=== PATIENT | female | born 1945 | race Hispanic/Latino ===

== ENCOUNTER 2019-03-09 23:47 | Inpatient (IN) | payer MEDICARE ==
--- NOTE | 2019-03-10 01:02 | Emergency Department Report ---
ED Chest Pain HPI - General Chief Complaint: Chest Pain Stated Complaint: CHEST PAIN Time Seen by Provider: 03/10/19 00:36 Source: EMS Mode of arrival: Stretcher Limitations: Altered Mental Status - History of Present Illness Initial Comments: 74-year-old female with no significant past history presents emergency Department with her son reports having a 4 day history of waxing and waning lower substernal chest pain she thinks might be related to some indigestion. His symptoms of weakness that he is well and occasional dizziness when she goes from lying her down. This typically occurs and she's been lying down prolonged period of time. No joint swelling, no cough, no fever, chills, sweats no hemoptysis no hematemesis nor hematochezia. MD Complaint: chest pain -: days(s) (4) Pain Location: substernal Pain Radiation: none Severity: mild, moderate Quality: dull Improves With: nothing Worsens With: nothing re: nausea Treatments Prior to Arrival: none - Related Data On Oral Contraceptives: No Home Medications Medication Instructions Recorded Confirmed Last Taken Naproxen [Naproxen TAB] 250 mg PO TID 07/10/15 07/10/15 06/10/15 traZODone [Desyrel] 50 mg PO QHS 07/10/15 07/10/15 07/05/15 Previous Rx's Medication Instructions Recorded Last Taken Type Promethazine [Phenergan TAB] 25 mg PO Q6HR PRN #20 tab 07/11/15 Unknown Rx traMADoL [Ultram] 50 mg PO Q6HR PRN #20 tablet 07/11/15 Unknown Rx Allergies Allergy/AdvReac Type Severity Reaction Status Date / Time No Known Allergies Allergy Unverified 07/10/15 22:05 Heart Score - HEART Score History: Moderately suspicious EKG: Non-specific Age: > 65 Risk factors: No known risk factors Troponin: < normal limit HEART Score: 4 ED Review of Systems ROS: Stated complaint: CHEST PAIN Other details as noted in HPI Comment: All other systems reviewed and negative ED Past Medical Hx - Past Medical History Hx Hypertension: Yes Additional medical history: polio - Surgical History Additional Surgical History: bilat. leg surgery, - Social History Smoking Status: Never Smoker Substance Use Type: None - Medications Home Medications: Home Medications Medication Instructions Recorded Confirmed Last Taken Type Naproxen [Naproxen TAB] 250 mg PO TID 07/10/15 07/10/15 06/10/15 History traZODone [Desyrel] 50 mg PO QHS 07/10/15 07/10/15 07/05/15 History Promethazine [Phenergan TAB] 25 mg PO Q6HR PRN #20 tab 07/11/15 Unknown Rx traMADoL [Ultram] 50 mg PO Q6HR PRN #20 tablet 07/11/15 Unknown Rx ED Physical Exam - General Limitations: Altered Mental Status General appearance: alert, in no apparent distress - Head Head exam: Present: atraumatic, normocephalic - Eye Eye exam: Present: normal appearance, PERRL, EOMI. Absent: scleral icterus, conjunctival injection Pupils: Present: normal accommodation - ENT ENT exam: Present: normal exam, normal orophraynx, mucous membranes moist, TM's normal bilaterally - Neck Neck exam: Present: normal inspection, full ROM. Absent: meningismus, thyromegaly - Respiratory Respiratory exam: Present: normal lung sounds bilaterally. Absent: respiratory distress, wheezes, rales, chest wall tenderness, accessory muscle use - Cardiovascular Cardiovascular Exam: Present: regular rate, normal rhythm. Absent: systolic murmur, diastolic murmur, rubs, gallop - GI/Abdominal GI/Abdominal exam: Present: soft, normal bowel sounds. Absent: distended, tenderness, hyperactive bowel sounds, hypoactive bowel sounds, organomegaly - Extremities Exam Extremities exam: Present: normal inspection, normal capillary refill - Back Exam Back exam: Present: normal inspection. Absent: CVA tenderness (R), CVA tenderness (L) - Neurological Exam Neurological exam: Present: alert, oriented X3 - Psychiatric Psychiatric exam: Present: normal affect, normal mood - Skin Skin exam: Present: warm, dry, intact, normal color. Absent: rash ED Course Vital Signs 03/10/19 03/10/19 03/10/19 00:16 00:26 00:30 Temperature 98.4 F Pulse Rate 72 70 Respiratory 18 13 Rate Blood Pressure 138/53 138/53 133/55 O2 Sat by Pulse 88 100 Oximetry 03/10/19 03/10/19 03/10/19 00:45 01:00 01:15 Temperature Pulse Rate 70 68 70 Respiratory 12 12 14 Rate Blood Pressure 140/56 140/54 142/53 O2 Sat by Pulse 94 96 Oximetry 03/10/19 03/10/19 03/10/19 01:34 01:45 02:00 Temperature Pulse Rate 67 68 66 Respiratory 11 L 14 15 Rate Blood Pressure 142/53 139/56 124/46 O2 Sat by Pulse 96 96 Oximetry 03/10/19 03/10/19 03/10/19 02:15 02:30 02:45 Temperature Pulse Rate 64 59 L 65 Respiratory 19 12 12 Rate Blood Pressure 135/55 125/45 132/48 O2 Sat by Pulse 95 95 94 Oximetry 03/10/19 03/10/19 03/10/19 03:00 03:15 03:30 Temperature Pulse Rate 59 L 64 60 Respiratory 13 14 22 Rate Blood Pressure 126/44 125/51 126/48 O2 Sat by Pulse 95 95 95 Oximetry 03/10/19 03/10/19 03:46 04:00 Temperature Pulse Rate 65 63 Respiratory 12 22 Rate Blood Pressure 125/48 128/52 O2 Sat by Pulse 95 94 Oximetry VERONIKA score - Veronika Score Age > 65: (1) Yes Aspirin use within the Past 7 Days: (0) No 3 or more CAD Risk Factors: (0) No 2 or more Angina events in past 24 hrs: (0) No Known CAD with more than 50% Stenosis: (0) No Elevated Cardiac Markers: (0) No (s) ST Deviation Greater than 0.5mm: (0) No VERONIKA Score: 1 ED Medical Decision Making - Lab Data Result diagrams: 03/10/19 01:05 03/10/19 01:05 - Medical Decision Making This patient presents with chest pain, with a history suggestive of cardiac chest pain. No evidence of volume overload or shock on exam. EKG without signs of active ischemia. EKG without evidence of STEMI. Low suspicion for acute PE , pneumothorax, thoracic aortic dissection, cardiac effusion / tamponade. Overall, ACS is being considered given higher risk features, , history & physical. HEART score: as per documentation. Patient will require admission for inpatient risk stratification and possible provocative testing. Plan: youth nutritional monitor, EKG, serial troponins, CXR, ASA, , pain control, reassess, Cardiology consult Critical care attestation.: If time is entered above; I have spent that time in minutes in the direct care of this critically ill patient, excluding procedure time. ED Disposition Clinical Impression: Chest pain Disposition: OP ADMIT IP TO THIS HOSP Is pt being admited?: Yes Does the pt Need Aspirin: No Condition: Stable Instructions: Chest Pain (ED)
[2019-03-10 01:46] LABS: Albumin 2.5 g/dL (3.9-5); BUN/Creatinine Ratio 30; Basophils % (Auto) 0.4 % (0.0-1.8); Blood Urea Nitrogen 15 mg/dL (7-17); Calcium 9.1 mg/dL (8.4-10.2); Eosinophils # (Auto) 0.2 K/mm3 (0.0-0.4); Hematocrit 22.3 % (30.3-42.9); Hemolysis Index 0; Lymphocytes # (Auto) 1.8 K/mm3 (1.2-5.4); Mean Corpuscular HGB Conc 31 % (30-34); Mean Corpuscular Volume 75 fl (79-97); Monocytes # (Auto) 1.5 K/mm3 (0.0-0.8); Monocytes % (Auto) 12.3 % (0.0-7.3); Platelet Count 751 K/mm3 (140-440); Red Blood Count 2.98 M/mm3 (3.65-5.03); Red Cell Distribution Width 17.7 % (13.2-15.2)
[2019-03-10 01:51] LABS: Alanine Aminotransferase < 5 units/L (7-56)
--- NOTE | 2019-03-10 01:56 | XRay Report ---
CHEST 2 VIEWS INDICATION / CLINICAL INFORMATION: Chest Pain. COMPARISON: None available. FINDINGS: SUPPORT DEVICES: None. HEART / MEDIASTINUM: No significant abnormality. LUNGS / PLEURA: Extensive airspace disease within the left upper lobe in the right lower lobe concern ing for multifocal pneumonia. Signer Name: Esteban Hawkins MD Signed: 03/10/2019 1:52 AM Workstation Name: [id number]
[2019-03-10 05:09] LABS: Bilirubin,Urine NEG (Negative); Blood,Urine NEG (Negative); Color,Urine Yellow (Yellow); Mucus,Urine FEW /HPF; Protein,Urine <15 mg/dL mg/dL (Negative)
[2019-03-10] MEDS ORDERED: traMADol 50 MG TAB PO PRN (06:37)
[2019-03-10] MEDS ORDERED: ACETAMINOPHEN 325 MG TAB PO PRN ×2 (06:38→06:45)
[2019-03-10] MEDS ORDERED: ONDANSETRON 4 MG/2 ML INJ IV PRN ×2 (06:38→06:45)
[2019-03-10] MEDS ORDERED: oxyCODONE /ACETAMINOPHEN 5-325MG TAB PO PRN (06:38)
[2019-03-10] MEDS ORDERED: METOCLOPRAMIDE 10 MG/2 ML INJ IV PRN ×2 (06:38→08:00)
[2019-03-10] MEDS ORDERED: HYDROmorphone 1 MG/1 ML INJ IV PRN (06:38)
--- NOTE | 2019-03-10 06:38 | Event Note ---
Date: 03/10/19 See history and physical in the reports Chest pain rule out AR Hypertension not taking her medications Cachexia and malnutrition
[2019-03-10] MEDS ORDERED: SODIUM CHLORIDE 0.9% 500 ML 500 ML IV ONE (06:49)
--- NOTE | 2019-03-10 07:01 | History and Physical Report ---
CHIEF COMPLAINT: Chest pain for 4 days. HISTORY OF PRESENT ILLNESS: A 74-year-old female with a history of depression and hypertension, comes in for chest pain of 4 days' duration. Apparently, Gen [facility], her PCP group stopped all her medications, including aspirin and antihypertensives. The patient has been having intermittent chest pain for last 4 days. Sharp in nature. Also, a 7-8 on a scale of 1-10. Able to move all 4 extremities. The patient is nervous about the chest pain. Otherwise, no recent travel. PAST MEDICAL HISTORY: Significant for hypertension and polio. PAST SURGICAL HISTORY: Bilateral leg surgery. SOCIAL HISTORY: Does not smoke. No drugs. FAMILY HISTORY: Hypertension. REVIEW OF SYSTEMS: Significant for left-sided chest pain for 4 days. No shortness of breath. Otherwise, review of systems negative. PHYSICAL EXAMINATION: GENERAL: Elderly female, cooperative during examination. VITAL SIGNS: Blood pressure is 126/44, temperature is 98, pulse is 59, respirations are 13, sats are 95%. HEENT: Unremarkable. Pupils equal and reactive. NECK: Supple, no lymphadenopathy, no thyromegaly. The patient is cachectic. LUNGS: Clear to auscultation and percussion. Good air entry. CARDIOVASCULAR: S1, S2 heard. No gallop, no murmur, no rub. Apical impulse in left fifth intercostal space and midclavicular line. ABDOMEN: Soft and benign. No hepatosplenomegaly. No guarding, no rigidity. Hernial orifices are normal. EXTREMITIES: Good pedal pulses. No pedal edema. CENTRAL NERVOUS SYSTEM: Alert and oriented x 4, nonfocal exam. LABORATORY DATA: White count is 12,200, H and H is 7.0 and 22.3, platelet count is 751,000. Sodium is 141, potassium is 3.5, BUN and creatinine 15 and 0.5, albumin is not available. Chest x-ray shows extensive airspace disease in the left upper lobe and right lower lobe, concerning for multifocal pneumonia. EKG shows left bundle branch block, heart rate of 79, sinus rhythm, atrial premature complexes. ASSESSMENT AND PLAN: 1. Bilateral pneumonia. The patient initiated on ceftriaxone and azithromycin and IV fluids. 2. Chest pain, which is probably secondary to pleurisy. We will not order a stress test. Troponins ordered. Stress test will not be ordered at this point. To be ordered by primary team if necessary. 3. Cachexia and malnutrition. Dietitian consult requested. 4. History of hypertension, blood pressure readings are normal now. We will add antihypertensives if necessary. 5. Deep venous thrombosis prophylaxis, SCDs. 6. Acute anemia. Transfuse 1-2 units. Anemia workup initiated. In the form of iron studies and folic acid and B12 levels. Again, dietitian consult will help with her nutrition. JOB# [id number] DOLORES/LUIS HILLMAN
[2019-03-10] MEDS: HEPARIN 5,000 UNIT/1 ML VIAL SUB-Q SCH ×2 (09:29→22:02)
[2019-03-10] MEDS: FAMOTIDINE 20 MG/2 ML INJ IV SCH ×2 (09:29→22:02)
[2019-03-10] MEDS ORDERED: cefTRIAXone/NS 2 GM/100 ML 2 GM/100 ML BAG IV SCH (10:00)
[2019-03-10] MEDS: AZITHROMYCIN 500 MG in SODIUM CHLORIDE 0.9% 250ML 250 ML IV SCH (10:57)
--- NOTE | 2019-03-10 13:29 | Consultation ---
History of Present Illness Consult date: 03/10/19 Consult reason: chest pain History of present illness: This is a 74-year old woman who was brought in with reports of chest pain thus this cardiac consultation. Patient is non-verbal. History is unobtainable. Initial labs reveals severe anemia with a hematocrit of 22. Cycled troponins were negative. An ECG is sinus rhythm with a left bundle branch block. Further evaluation with a chest x-ray reports concerns for multi-focal pneumonia. Medications and Allergies Allergies Allergy/AdvReac Type Severity Reaction Status Date / Time No Known Allergies Allergy Unverified 07/10/15 22:05 Home Medications Medication Instructions Recorded Confirmed Last Taken Type Naproxen [Naproxen TAB] 250 mg PO TID 07/10/15 07/10/15 06/10/15 History traZODone [Desyrel] 50 mg PO QHS 07/10/15 07/10/15 07/05/15 History Promethazine [Phenergan TAB] 25 mg PO Q6HR PRN #20 tab 07/11/15 Unknown Rx traMADoL [Ultram] 50 mg PO Q6HR PRN #20 tablet 07/11/15 Unknown Rx Active Meds: Active Medications Acetaminophen (Tylenol) 650 mg PO Q4H PRN PRN Reason: Pain MILD(1-3)/Fever >100.5/HUANG Famotidine (Pepcid) 10 mg IV BID [facility] Last Admin: 03/10/19 09:29 Dose: 10 mg Documented by: Heparin Sodium (Porcine) (Heparin) 5,000 unit SUB-Q Q12HR MARTHA Last Admin: 03/10/19 09:29 Dose: 5,000 unit Documented by: Hydromorphone HCl (Dilaudid) 0.25 mg IV Q3H PRN PRN Reason: Pain, Moderate (4-6) Sodium Chloride (Nacl 0.9% 1000 Ml) 1,000 mls @ 75 mls/hr IV DIRECT MARTHA Ceftriaxone Sodium (Rocephin/Ns 2 Gm/100 Ml) 2 gm in 100 mls @ 200 mls/hr IV Q24HR MARTHA; Protocol Last Admin: 03/10/19 09:28 Dose: 200 mls/hr Documented by: Azithromycin 500 mg/ Sodium (Chloride) 250 mls @ 250 mls/hr IV Q24HR MARTHA; Protocol Last Admin: 03/10/19 10:57 Dose: 250 mls/hr Documented by: Metoclopramide HCl (Reglan) 5 mg IV Q6H PRN PRN Reason: Nausea And Vomiting Ondansetron HCl (Zofran) 4 mg IV Q8H PRN PRN Reason: Nausea And Vomiting Oxycodone/Acetaminophen (Percocet 5/325) 1 tab PO Q6H PRN PRN Reason: Pain, Moderate (4-6) Sodium Chloride (Sodium Chloride Flush Syringe 10 Ml) 10 ml IV BID [facility] Last Admin: 03/10/19 09:37 Dose: 10 ml Documented by: Sodium Chloride (Sodium Chloride Flush Syringe 10 Ml) 10 ml IV PRN PRN PRN Reason: LINE FLUSH Tramadol HCl (Ultram) 50 mg PO Q12H PRN PRN Reason: Pain, Mild (1-3) Trazodone HCl (Desyrel) 50 mg PO QHS [facility] Physical Examination Vital Signs BP Pulse Ox 138/53 88 03/10/19 00:16 03/10/19 00:16 General appearance: no acute distress HEENT: Positive: PERRL Neck: Positive: trachea midline Cardiac: Positive: Reg Rate and Rhythm Lungs: Positive: Decreased Breath Sounds Results 03/10/19 01:05 03/10/19 01:05 Cardiac Enzymes 03/10/19 Range/Units 01:05 AST 8 (5-40) units/L CBC 03/10/19 Range/Units 01:05 WBC 12.2 H (4.5-11.0) K/mm3 RBC 2.98 L (3.65-5.03) M/mm3 Hgb 7.0 L (10.1-14.3) gm/dl Hct 22.3 L (30.3-42.9) % Plt Count 751 H (140-440) K/mm3 Lymph # 1.8 (1.2-5.4) K/mm3 [place] # 1.5 H (0.0-0.8) K/mm3 Eos # 0.2 (0.0-0.4) K/mm3 Baso # 0.0 (0.0-0.1) K/mm3 Comprehensive Metabolic Panel 03/10/19 Range/Units 01:05 Sodium 141 (137-145) mmol/L Potassium 3.5 L (3.6-5.0) mmol/L Chloride 99.9 (98-107) mmol/L Carbon Dioxide 31 H (22-30) mmol/L BUN 15 (7-17) mg/dL Creatinine 0.5 L (0.7-1.2) mg/dL Glucose 84 (65-100) mg/dL Calcium 9.1 (8.4-10.2) mg/dL AST 8 (5-40) units/L ALT < 5 L (7-56) units/L Alkaline Phosphatase 141 H (35-129) units/L Total Protein 5.7 L (6.3-8.2) g/dL Albumin 2.5 L (3.9-5) g/dL
[2019-03-10] MEDS: SODIUM CHLORIDE 0.9% 1000 ML 1,000 ML IV SCH (13:40)
--- NOTE | 2019-03-10 15:10 | Consultation ---
History of Present Illness - Reason for Consult Consult date: 03/10/19 Pneumonia, sepsis Requesting physician: CARMELLA DOWNS - History of Present Illness The patient is a 74-year-old female with history of hypertension who came into the emergency room last night with complaints of chest pain going on for about 4 days. Labs showed mild leukocytosis and chest x-ray showed findings concerning for pneumonia. Was also seen by cardiology, troponins were negative. I nfectious diseases was consulted due to concerns for pneumonia. Was empirically started on ceftriaxone and azithromycin. Awake, but confused, family members at bedside. Apparently patient is a heavy and chronic smoker. She is also somewhat confused, unable to provide a good history. History obtained by chart review and family members at bedside (son and his ). Review of Systems: limited due to confusion. Past History Past Medical History: hypertension Social history: smoking (extensive smoking history) Family history: hypertension Medications and Allergies Allergies Allergy/AdvReac Type Severity Reaction Status Date / Time No Known Allergies Allergy Unverified 07/10/15 22:05 Home Medications Medication Instructions Recorded Confirmed Last Taken Type Naproxen [Naproxen TAB] 250 mg PO TID 07/10/15 07/10/15 06/10/15 History traZODone [Desyrel] 50 mg PO QHS 07/10/15 07/10/15 07/05/15 History Promethazine [Phenergan TAB] 25 mg PO Q6HR PRN #20 tab 07/11/15 Unknown Rx traMADoL [Ultram] 50 mg PO Q6HR PRN #20 tablet 07/11/15 Unknown Rx Active Meds: Active Medications Acetaminophen (Tylenol) 650 mg PO Q4H PRN PRN Reason: Pain MILD(1-3)/Fever >100.5/HUANG Famotidine (Pepcid) 10 mg IV BID [facility] Last Admin: 03/10/19 09:29 Dose: 10 mg Documented by: Heparin Sodium (Porcine) (Heparin) 5,000 unit SUB-Q Q12HR [facility] Last Admin: 03/10/19 09:29 Dose: 5,000 unit Documented by: Hydromorphone HCl (Dilaudid) 0.25 mg IV Q3H PRN PRN Reason: Pain, Moderate (4-6) Sodium Chloride (Nacl 0.9% 1000 Ml) 1,000 mls @ 75 mls/hr IV DIRECT [facility] Last Admin: 03/10/19 13:40 Dose: 75 mls/hr Documented by: Ceftriaxone Sodium (Rocephin/Ns 2 Gm/100 Ml) 2 gm in 100 mls @ 200 mls/hr IV Q24HR [facility]; Protocol Last Admin: 03/10/19 09:28 Dose: 200 mls/hr Documented by: Azithromycin 500 mg/ Sodium (Chloride) 250 mls @ 250 mls/hr IV Q24HR [facility]; Protocol Last Admin: 03/10/19 10:57 Dose: 250 mls/hr Documented by: Metoclopramide HCl (Reglan) 5 mg IV Q6H PRN PRN Reason: Nausea And Vomiting Ondansetron HCl (Zofran) 4 mg IV Q8H PRN PRN Reason: Nausea And Vomiting Oxycodone/Acetaminophen (Percocet 5/325) 1 tab PO Q6H PRN PRN Reason: Pain, Moderate (4-6) Sodium Chloride (Sodium Chloride Flush Syringe 10 Ml) 10 ml IV BID [facility] Last Admin: 03/10/19 09:37 Dose: 10 ml Documented by: Sodium Chloride (Sodium Chloride Flush Syringe 10 Ml) 10 ml IV PRN PRN PRN Reason: LINE FLUSH Tramadol HCl (Ultram) 50 mg PO Q12H PRN PRN Reason: Pain, Mild (1-3) Trazodone HCl (Desyrel) 50 mg PO QHS [facility] Physical Examination - Physical Exam Narrative exam: Physical Exam: Constitutional: Alert, cooperative. No acute distress. cachexia Head, Ears, Nose: Normocephalic, atraumatic. External ears, nose normal Eyes: Conjunctivae/corneas clear. No icterus. No ptosis. Neck: Supple, no meningeal signs Oral: no thrush Cardiovascular: S1, S2 normal, 3/6 systolic murmur Respiratory: Good air entry, clear to auscultation bilaterally GI: Soft, non-tender; bowel sounds normal. No peritoneal signs Musculoskeletal: No pedal edema, no cyanosis. Skin: No rash or abscess Hem/Lymphatic: No palpable cervical or supraclavicular nodes. No lymphangitis Psych: no agitation Neurological: Awake, alert, not oriented - Constitutional Vitals: Vital Signs Temp Pulse Resp BP Pulse Ox 97.9 F 80 18 141/54 97 03/10/19 14:44 03/10/19 14:44 03/10/19 14:44 03/10/19 14:44 03/10/19 14:44 Temperature -Last 24 Hours Temperature 97.9 F Temperature 98 F Temperature 98.0 F Temperature 98.5 F Temperature 98.4 F Temperature 98.4 F Results - Labs CBC & Chem 7: 03/10/19 01:05 03/10/19 01:05 Labs: Abnormal lab results 03/10/19 03/10/19 03/10/19 Range/Units 01:05 01:05 08:12 WBC 12.2 H (4.5-11.0) K/mm3 RBC 2.98 L (3.65-5.03) M/mm3 Hgb 7.0 L (10.1-14.3) gm/dl Hct 22.3 L (30.3-42.9) % MCV 75 L (79-97) fl MCH 23 L (28-32) pg RDW 17.7 H (13.2-15.2) % Plt Count 751 H (140-440) K/mm3 [place] % (Auto) 12.3 H (0.0-7.3) % [place] # 1.5 H (0.0-0.8) K/mm3 Seg Neutrophils % 70.3 H (40.0-70.0) % Seg Neutrophils # 8.6 H (1.8-7.7) K/mm3 Potassium 3.5 L (3.6-5.0) mmol/L Carbon Dioxide 31 H (22-30) mmol/L Creatinine 0.5 L (0.7-1.2) mg/dL ALT < 5 L (7-56) units/L Alkaline Phosphatase 141 H (35-129) units/L Total Protein 5.7 L (6.3-8.2) g/dL Albumin 2.5 L (3.9-5) g/dL Lipase 9 L (13-60) units/L Crossmatch See Detail - Imaging and Cardiology Chest x-ray: report reviewed, image reviewed (x-ray shows bilateral pneumonia) Assessment and Plan Cultures: None A/P: 74-year-old female with history of hypertension admitted with: 1) Bilateral pneumonia: mild WBC elevation with chest pain and CXR findings concerning for multifocal pneumonia. 2) Anemia with thrombocytosis: monitor. Recs: No cultures ordered on admission, already on antibiotics, yield will be low now Continue Ceftriaxone and Azithromycin x total 5 days, switch to PO abx when improved Influenza rule out monitor CBC given anemia and thrombocytosis Molly Mcdaniel MD, FACP [facility] C: [phone] O: [phone] F: [phone]
[2019-03-10] MEDS: traZODone 50 MG TAB PO SCH (22:02)
[2019-03-11 04:45] LABS: Basophils # (Auto) 0.1 K/mm3 (0.0-0.1); Eosinophils # (Auto) 0.4 K/mm3 (0.0-0.4); Eosinophils % (Auto) 3.6 % (0.0-4.3); Hematocrit 26.6 % (30.3-42.9); Hemoglobin 8.7 gm/dl (10.1-14.3); Lymphocytes # (Auto) 2.2 K/mm3 (1.2-5.4); Lymphocytes % (Auto) 20.7 % (13.4-35.0); Mean Corpuscular HGB Conc 33 % (30-34); Mean Corpuscular Volume 77 fl (79-97); Monocytes # (Auto) 1.4 K/mm3 (0.0-0.8); Monocytes % (Auto) 12.8 % (0.0-7.3); Platelet Count 644 K/mm3 (140-440); Red Blood Count 3.45 M/mm3 (3.65-5.03); Red Cell Distribution Width 17.5 % (13.2-15.2)
[2019-03-11 05:05] LABS: Alanine Aminotransferase 5 units/L (7-56); Albumin 2.2 g/dL (3.9-5); BUN/Creatinine Ratio 24; Blood Urea Nitrogen 12 mg/dL (7-17); Calcium 8.6 mg/dL (8.4-10.2); Hemolysis Index 0
[2019-03-11] MEDS: cefTRIAXone/NS 1 GM/50 ML 1 GM/50 ML BAG IV SCH (09:27)
[2019-03-11] MEDS: FAMOTIDINE 10 MG TAB PO SCH ×2 (09:28→22:35)
[2019-03-11] MEDS: HEPARIN 5,000 UNIT/1 ML VIAL SUB-Q SCH ×2 (09:29→22:35)
[2019-03-11] MEDS: AZITHROMYCIN 500 MG in SODIUM CHLORIDE 0.9% 250ML 250 ML IV SCH (11:03)
--- NOTE | 2019-03-11 13:03 | Progress Note ---
Assessment and Plan Atypical chest pain Pneumonia Severe anemia Chronic left bundle-branch block Recommendations: An echocardiogram for left ventricular function assessment. Otherwise, conservative cardiac management. Subjective Date of service: 03/11/19 Interval history: Receiving physical therapy. Objective Vital Signs Temp Pulse Resp BP Pulse Ox 03/11/19 07:34 97.4 F L 64 18 122/43 96 03/11/19 02:16 74 92 03/11/19 01:39 98.6 F 20 108/51 03/10/19 19:52 73 03/10/19 19:42 98.2 F 68 20 144/51 95 03/10/19 19:29 20 03/10/19 16:40 98.3 F 73 16 154/49 95 03/10/19 16:14 98.6 F 85 18 106/51 98 03/10/19 15:44 98.3 F 69 18 147/53 97 03/10/19 15:14 98.1 F 78 18 133/44 97 03/10/19 14:44 97.9 F 80 18 141/54 97 03/10/19 14:29 98 F 83 18 137/52 96 03/10/19 13:15 98.0 F 80 20 146/66 87 - Physical Examination General: No Apparent Distress HEENT: Positive: PERRL Neck: Positive: trachea midline Cardiac: Positive: Reg Rate and Rhythm Lungs: Positive: Decreased Breath Sounds Neuro: Positive: Grossly Intact Extremities: Absent: edema - Labs and Meds Cardiac Enzymes 03/11/19 Range/Units 04:04 AST 8 (5-40) units/L CBC 03/11/19 Range/Units 04:04 WBC 10.7 (4.5-11.0) K/mm3 RBC 3.45 L (3.65-5.03) M/mm3 Hgb 8.7 L (10.1-14.3) gm/dl Hct 26.6 L (30.3-42.9) % Plt Count 644 H (140-440) K/mm3 Lymph # 2.2 (1.2-5.4) K/mm3 [place] # 1.4 H (0.0-0.8) K/mm3 Eos # 0.4 (0.0-0.4) K/mm3 Baso # 0.1 (0.0-0.1) K/mm3 Comprehensive Metabolic Panel 03/11/19 Range/Units 04:04 Sodium 140 (137-145) mmol/L Potassium 3.6 (3.6-5.0) mmol/L Chloride 101.9 (98-107) mmol/L Carbon Dioxide 29 (22-30) mmol/L BUN 12 (7-17) mg/dL Creatinine 0.5 L (0.7-1.2) mg/dL Glucose 85 (65-100) mg/dL Calcium 8.6 (8.4-10.2) mg/dL AST 8 (5-40) units/L ALT 5 L (7-56) units/L Alkaline Phosphatase 126 (35-129) units/L Total Protein 5.1 L (6.3-8.2) g/dL Albumin 2.2 L (3.9-5) g/dL
--- NOTE | 2019-03-11 14:16 | Progress Note ---
Assessment and Plan Assessment and plan: Patient is a 74 yo woman with a history of tobacco dependency, depression and hypertension who [facility] with AMS, cough, sob, chest pains. She was found to have bilateral pneumonia and low pulse ox of 88% on RA. * CXR 2 view: Extensive airspace disease within the left upper lobe, in the right lower lobe concerning for multifocal pneumonia Acute hypoxic respiratory failure: treat with O2 Bilateral pneumonia: treat with ABX Anemia appears acute on chronic s/p 1 units: monitor closely Severe malnutrition, poa bmi 16.8: consult [employer] Member Hypokalemia: replete and montior closely DVT ppx scd due to hgb 7.0 History Interval history: Patient was seen and examined. Follow-up on current diagnosis. No overnight events reported to me. Patient denies any chest pain, shortness breath, nausea/vomiting or severe headaches. Imaging, nursing note, chart, labs and old chart reviewed. Discussed with patient. Hospitalist Physical - Physical exam Narrative exam: Gen: cachetic, NAD, Awake, Alert, Orientated HEENT: NCAT, EOMI, PERRL, OP Clear Neck: supple, no adenopathy, no thyromegaly, no JVD CVS/Heart: RRR, normal S1S2, pulses present bilaterally Chest/Lungs: coarse bs bilateral, Symmetrical chest expansion, good air entry bilaterally GI/Abdomen: soft, NTND, good bowel sounds, no guarding or rebound /Bladder: no suprapubic tenderness, no CVA or paraspinal tenderness Extermity/Skin: no c/c/e, no obvious rash MSK: FROM x 4 Neuro: CN 2-12 grossly intact except [place], no new focal deficits Psych: calm - Constitutional Vitals: Temp Pulse Resp BP Pulse Ox 97.8 F 77 20 122/56 97 03/11/19 13:02 03/11/19 13:02 03/11/19 13:02 03/11/19 13:02 03/11/19 13:02 General appearance: Present: no acute distress Results - Labs CBC & Chem 7: 03/11/19 04:04 03/11/19 04:04 Labs: Laboratory Last Values WBC 10.7 K/mm3 (4.5-11.0) 03/11/19 04:04 RBC 3.45 M/mm3 (3.65-5.03) L 12/03/19 04:04 Hgb 8.7 gm/dl (10.1-14.3) L 03/11/19 04:04 Hct 26.6 % (30.3-42.9) L 03/11/19 04:04 MCV 77 fl (79-97) L 03/11/19 04:04 MCH 25 pg (28-32) L 03/11/19 04:04 MCHC 33 % (30-34) 03/11/19 04:04 RDW 17.5 % (13.2-15.2) H 03/11/19 04:04 Plt Count 644 K/mm3 (140-440) H 03/11/19 04:04 Lymph % (Auto) 20.7 % (13.4-35.0) 03/11/19 04:04 [place] % (Auto) 12.8 % (0.0-7.3) H 03/11/19 04:04 Eos % (Auto) 3.6 % (0.0-4.3) 03/11/19 04:04 Baso % (Auto) 1.0 % (0.0-1.8) 03/11/19 04:04 Lymph # 2.2 K/mm3 (1.2-5.4) 03/11/19 04:04 [place] # 1.4 K/mm3 (0.0-0.8) H 03/11/19 04:04 Eos # 0.4 K/mm3 (0.0-0.4) 03/11/19 04:04 Baso # 0.1 K/mm3 (0.0-0.1) 03/11/19 04:04 Seg Neutrophils % 61.9 % (40.0-70.0) 03/11/19 04:04 Seg Neutrophils # 6.6 K/mm3 (1.8-7.7) 03/11/19 04:04 Sodium 140 mmol/L (137-145) 03/11/19 04:04 Potassium 3.6 mmol/L (3.6-5.0) 03/11/19 04:04 Chloride 101.9 mmol/L (98-107) 03/11/19 04:04 Carbon Dioxide 29 mmol/L (22-30) 03/11/19 04:04 Anion Gap 13 mmol/L 03/11/19 04:04 BUN 12 mg/dL (7-17) 03/11/19 04:04 Creatinine 0.5 mg/dL (0.7-1.2) L 03/11/19 04:04 Estimated GFR > 60 ml/min 03/11/19 04:04 BUN/Creatinine Ratio 24 % 03/11/19 04:04 Glucose 85 mg/dL (65-100) 03/11/19 04:04 Hemoglobin A1c 4.8 % (4-6) 03/10/19 08:12 Calcium 8.6 mg/dL (8.4-10.2) 03/11/19 04:04 Total Bilirubin 0.20 mg/dL (0.1-1.2) 03/11/19 04:04 AST 8 units/L (5-40) 03/11/19 04:04 ALT 5 units/L (7-56) L 03/11/19 04:04 Alkaline Phosphatase 126 units/L (35-129) 03/11/19 04:04 Troponin T < 0.010 ng/mL (0.00-0.029) 03/10/19 12:50 Total Protein 5.1 g/dL (6.3-8.2) L 03/11/19 04:04 Albumin 2.2 g/dL (3.9-5) L 03/11/19 04:04 Albumin/Globulin Ratio 0.8 % 03/11/19 04:04 Lipase 9 units/L (13-60) L 03/10/19 01:05 Urine Color Yellow (Yellow) 03/10/19 04:50 Urine Turbidity Clear (Clear) 03/10/19 04:50 Urine pH 6.0 (5.0-7.0) 03/10/19 04:50 Ur Specific [place] 1.019 (1.003-1.030) 03/10/19 04:50 Urine Protein <15 mg/dl mg/dL (Negative) 03/10/19 04:50 Urine Glucose (UA) Neg mg/dL (Negative) 03/10/19 04:50 Urine Ketones Neg mg/dL (Negative) 03/10/19 04:50 Urine Blood Neg (Negative) 03/10/19 04:50 Urine Nitrite Neg (Negative) 03/10/19 04:50 Urine Bilirubin Neg (Negative) 03/10/19 04:50 Urine Urobilinogen 4.0 mg/dL (<2.0) 03/10/19 04:50 Ur Leukocyte Esterase Neg (Negative) 03/10/19 04:50 Urine WBC (Auto) 1.0 /HPF (0.0-6.0) 03/10/19 04:50 Urine RBC (Auto) 15.0 /HPF (0.0-6.0) 03/10/19 04:50 U Epithel Cells (Auto) < 1.0 /HPF (0-13.0) 03/10/19 04:50 Urine Mucus Few /HPF 03/10/19 04:50 Influenza A (Rapid) Negative (Negative) 03/10/19 15:28 Influenza B (Rapid) Negative (Negative) 03/10/19 15:28 Blood Type O POSITIVE 03/10/19 08:12 Antibody Screen Negative 03/10/19 08:12 Crossmatch See Detail 03/10/19 08:12 Active Medications - Current Medications Current Medications: Generic Name Dose Route Start Last Admin Trade Name Freq PRN Reason Stop Dose Admin Acetaminophen 650 mg 03/10/19 06:45 Tylenol PO Q4H PRN Pain MILD(1-3)/Fever >100.5/HUANG Famotidine 10 mg 03/11/19 10:00 03/11/19 09:28 Pepcid PO 10 mg BID MARTHA Administration Heparin Sodium (Porcine) 5,000 unit 03/10/19 10:00 03/11/19 09:29 Heparin SUB-Q 5,000 unit Q12HR MARTHA Administration Hydromorphone HCl 0.25 mg 03/10/19 06:38 Dilaudid IV Q3H PRN Pain, Moderate (4-6) Sodium Chloride 1,000 mls @ 75 mls/hr 03/10/19 07:00 03/10/19 13:40 Nacl 0.9% 1000 Ml IV 75 mls/hr DIRECT MARTHA Administration Azithromycin 500 mg/ Sodium 250 mls @ 250 mls/hr 03/10/19 10:00 03/11/19 11:03 Chloride IV 03/14/19 10:59 250 mls/hr Q24HR MARTHA Administration Protocol Ceftriaxone Sodium 1 gm in 50 mls @ 100 mls/hr 03/11/19 10:00 03/11/19 09:27 Rocephin/Ns 1 Gm/50 Ml IV 03/14/19 10:29 100 mls/hr Q24H MARTHA Administration Protocol Metoclopramide HCl 5 mg 03/10/19 08:00 Reglan IV Q6H PRN Nausea And Vomiting Ondansetron HCl 4 mg 03/10/19 06:38 Zofran IV Q8H PRN Nausea And Vomiting Oxycodone/Acetaminophen 1 tab 03/10/19 06:38 Percocet 5/325 PO Q6H PRN Pain, Moderate (4-6) Sodium Chloride 10 ml 03/10/19 10:00 03/11/19 09:29 Sodium Chloride Flush Syringe 10 Ml IV 10 ml BID MARTHA Administration Sodium Chloride 10 ml 03/10/19 06:38 Sodium Chloride Flush Syringe 10 Ml IV PRN PRN LINE FLUSH Tramadol HCl 50 mg 03/10/19 06:37 Ultram PO Q12H PRN Pain, Mild (1-3) Trazodone HCl 50 mg 03/10/19 22:00 03/10/19 22:02 Desyrel PO 50 mg QHS MARTHA Administration Nutrition/Malnutrition Assess - Dietary Evaluation Nutrition/Malnutrition Findings: Nutrition Notes Start: 03/11/19 12:27 Freq: Status: Active Protocol: Document 03/11/19 12:27 KS (Rec: 03/11/19 12:42 KS [id number]) Co-Sign 03/11/19 12:27 LP Nutrition Notes Need for Assessment generated from: Low BMI Initial or Follow up Assessment Current Diagnosis Sepsis,Hypertension Other Pertinent Diagnosis Pneumonia, Anemia Current Diet Regular Diet Labs/Tests CR 0.5 Pertinent Medications Heparin Height 4 ft 7 in Weight 32.8 kg Usual Body Weight 36.4 kg [place] Body Weight (kg) 34.09 BMI 16.8 Intake Prior to Admission Fair Weight change and time frame 12.5% wt loss in 3 mos Weight Status Underweight Subjective/Other Information Consult for low BMI. Pt reports UBW of 80lbs and wt loss of 10lbs in 3 mos. Wt in chart consistent with stated wt loss. Pt reports decreased appetite, only eating bites of food x4 days [employer]. Pt ate bites of breakfast tray this morning which family member at bedside says is "more than at home." No N/V/D. Mild muscle wasting noted. Pt requests Ensure Enlive BID. Burn Absent Trauma Absent Minimum of two criteria Yes Energy Intake (non-severe) <75% Estimated Energy Requirement >7 days Interpretation of Weight Loss (severe) >7.5% in 3 months Muscle Mass Mild Depletion (non-severe) #1 Nutrition Diagnosis Malnutrition Etiology decreased appetite, unintended wt loss As Evidenced by Signs and Symptoms pt eating bites of food, wt loss of 8.8% in 3 mos, muscle wasting Is patient on ventilator? No Is Patient Ambulatory and/or Out of Bed Yes REE-([facility]-ambulatory/OOB) [ 871.169 [id number]] Kcal/Kg value to use for calculation 37 Approximate Energy Requirements Using 1214 kcal/Kg Calculation Used for Recommendations Kcal/kg Additional Notes PRO: 39-49g/kg/day (1.2-1.5g/ kg/day) Fluid: 1mL/kcal Nutrition Intervention Change Diet Order: Continue current diet Add Supplement/Snack (indicate name/kcal Ensure Enlive BID /protein ) Provides kCal: 700 Provides Protein (gm) 40 Goal #1 Meet at least 75% of needs via PO and ONS intakes Anticipated Discharge Needs: Regular Diet Follow-Up By: 03/13/19 Additional Comments Follow for PO and ONS intakes
--- NOTE | 2019-03-11 14:52 | Progress Note ---
Assessment and Plan Cultures: None A/P: 74-year-old female with history of hypertension admitted with: 1) Bilateral pneumonia: mild WBC elevation with chest pain and CXR findings concerning for multifocal pneumonia. Rapid influenza negative. 2) Anemia with thrombocytosis: monitor. Improving. 3) Extensive tobacco use Recs: Continue Ceftriaxone and Azithromycin while inpatient, upon d/c, can switch to PO Ceftin 500 mg BID + Azithromycin 500 mg daily ending 03/14/2019 given her extensive smoking history, she should get follow up imaging with her PCP in 3-4 weeks Molly Mcdaniel MD, FACP [facility] ([facility] C: [phone] O: [phone] F: [phone] Subjective Date of service: 03/11/19 Interval history: No fever. Breathing is better. Denies any complaints. Objective - Exam Narrative Exam: Physical Exam: Constitutional: Alert, cooperative. No acute distress. Cachexia Head, Ears, Nose: Normocephalic, atraumatic. External ears, nose normal Eyes: Conjunctivae/corneas clear. No icterus. No ptosis. Neck: Supple, no meningeal signs Cardiovascular: S1, S2 normal, 3/6 systolic murmur Respiratory: Good air entry, clear to auscultation bilaterally GI: Soft, non-tender; bowel sounds normal. No peritoneal signs Musculoskeletal: No pedal edema, no cyanosis. Skin: No rash or abscess Hem/Lymphatic: No palpable cervical or supraclavicular nodes. No lymphangitis Psych: calm, good mood, affect normal Neurological: Awake, alert, oriented - Constitutional Vitals: Vital Signs Temp Pulse Resp BP Pulse Ox 97.8 F 77 20 122/56 97 03/11/19 13:02 03/11/19 13:02 03/11/19 13:02 03/11/19 13:02 03/11/19 13:02 Temperature -Last 24 Hours Temperature 97.8 F Temperature 97.4 F Temperature 98.6 F Temperature 98.2 F Temperature 98.3 F Temperature 98.3 F Temperature 98.6 F Temperature 98.3 F Temperature 98.1 F - Labs CBC & Chem 7: 03/11/19 04:04 03/11/19 04:04 Labs: Abnormal lab results 03/10/19 03/11/19 03/11/19 Range/Units 08:12 04:04 04:04 RBC 3.45 L (3.65-5.03) M/mm3 Hgb 8.7 L (10.1-14.3) gm/dl Hct 26.6 L (30.3-42.9) % MCV 77 L (79-97) fl MCH 25 L (28-32) pg RDW 17.5 H (13.2-15.2) % Plt Count 644 H (140-440) K/mm3 [place] % (Auto) 12.8 H (0.0-7.3) % [place] # 1.4 H (0.0-0.8) K/mm3 Creatinine 0.5 L (0.7-1.2) mg/dL ALT 5 L (7-56) units/L Total Protein 5.1 L (6.3-8.2) g/dL Albumin 2.2 L (3.9-5) g/dL Crossmatch See Detail
[2019-03-11] MEDS: traZODone 50 MG TAB PO SCH (22:35)
[2019-03-12 06:02] LABS: Hematocrit 24.9 % (30.3-42.9); Mean Corpuscular HGB Conc 32 % (30-34); Mean Corpuscular Volume 78 fl (79-97); Platelet Count 586 K/mm3 (140-440); Red Blood Count 3.22 M/mm3 (3.65-5.03); Red Cell Distribution Width 17.6 % (13.2-15.2)
[2019-03-12 06:27] LABS: BUN/Creatinine Ratio 22; Blood Urea Nitrogen 11 mg/dL (7-17); Calcium 8.5 mg/dL (8.4-10.2); Hemolysis Index 4
[2019-03-12] MEDS: FAMOTIDINE 10 MG TAB PO SCH ×2 (10:09→21:31)
[2019-03-12] MEDS: cefTRIAXone/NS 1 GM/50 ML 1 GM/50 ML BAG IV SCH (10:09)
[2019-03-12] MEDS: AZITHROMYCIN 500 MG in SODIUM CHLORIDE 0.9% 250ML 250 ML IV SCH (10:10)
[2019-03-12] MEDS: SODIUM CHLORIDE 0.9% 1000 ML 1,000 ML IV SCH (10:10)
[2019-03-12] MEDS: HEPARIN 5,000 UNIT/1 ML VIAL SUB-Q SCH ×2 (10:10→21:33)
--- NOTE | 2019-03-12 11:01 | Progress Note ---
<SHANNAN MCCABE - Last Filed: 03/12/19 10:59> Assessment and Plan Atypical chest pain Pneumonia Severe anemia Chronic left bundle-branch block Recommendations: An echocardiogram for left ventricular function assessment. Otherwise, conservative cardiac management. Subjective Date of service: 03/12/19 Interval history: Patient is resting in bed comfortably. Objective Vital Signs Temp Pulse Pulse Resp BP Pulse Ox 03/12/19 07:54 72 03/12/19 07:08 98.1 F 64 18 137/56 92 03/12/19 02:08 97.3 F L 70 20 158/63 92 03/11/19 22:00 71 72 18 95 03/11/19 19:21 97.2 F L 71 18 131/51 95 03/11/19 13:02 97.8 F 77 20 122/56 97 - Physical Examination General: No Apparent Distress HEENT: Positive: PERRL Neck: Positive: trachea midline Cardiac: Positive: Reg Rate and Rhythm Lungs: Positive: Decreased Breath Sounds Neuro: Positive: Grossly Intact Extremities: Absent: edema - Labs and Meds CBC 03/12/19 Range/Units 04:58 WBC 8.9 (4.5-11.0) K/mm3 RBC 3.22 L (3.65-5.03) M/mm3 Hgb 8.0 L (10.1-14.3) gm/dl Hct 24.9 L (30.3-42.9) % Plt Count 586 H (140-440) K/mm3 Comprehensive Metabolic Panel 03/12/19 Range/Units 04:58 Sodium 141 (137-145) mmol/L Potassium 3.4 L (3.6-5.0) mmol/L Chloride 104.9 (98-107) mmol/L Carbon Dioxide 23 (22-30) mmol/L BUN 11 (7-17) mg/dL Creatinine 0.5 L (0.7-1.2) mg/dL Glucose 77 (65-100) mg/dL Calcium 8.5 (8.4-10.2) mg/dL <NAN MCKEON - Last Filed: 03/12/19 15:26> Assessment and Plan I seen and evaluated the patient and agree with the assessment and plan. The patient presented with atypical chest pain, pneumonia, severe anemia, and a known left bundle-branch block. Echocardiogram for left ventricular evaluation is pending. At this time recommend continue conservative medical therapy. Objective Vital Signs Temp Pulse Pulse Resp BP Pulse Ox 03/12/19 13:05 97.6 F 69 18 147/60 95 03/12/19 10:00 64 72 03/12/19 07:08 98.1 F 64 18 137/56 92 03/12/19 02:08 97.3 F L 70 20 158/63 92 03/11/19 22:00 71 72 18 95 03/11/19 19:21 97.2 F L 71 18 131/51 95 - Labs and Meds CBC 03/12/19 Range/Units 04:58 WBC 8.9 (4.5-11.0) K/mm3 RBC 3.22 L (3.65-5.03) M/mm3 Hgb 8.0 L (10.1-14.3) gm/dl Hct 24.9 L (30.3-42.9) % Plt Count 586 H (140-440) K/mm3 Comprehensive Metabolic Panel 03/12/19 Range/Units 04:58 Sodium 141 (137-145) mmol/L Potassium 3.4 L (3.6-5.0) mmol/L Chloride 104.9 (98-107) mmol/L Carbon Dioxide 23 (22-30) mmol/L BUN 11 (7-17) mg/dL Creatinine 0.5 L (0.7-1.2) mg/dL Glucose 77 (65-100) mg/dL Calcium 8.5 (8.4-10.2) mg/dL
--- NOTE | 2019-03-12 11:50 | Progress Note ---
Assessment and Plan Cultures: None A/P: 74-year-old female with history of hypertension admitted with: 1) Bilateral pneumonia: mild WBC elevation with chest pain and CXR findings concerning for multifocal pneumonia. Rapid influenza negative. 2) Anemia with thrombocytosis: monitor. Improving. 3) Extensive tobacco use Recs: Continue Ceftriaxone and Azithromycin while inpatient, when discharged, can switch to PO Ceftin 500 mg BID + Azithromycin 500 mg daily ending 03/14/2019 given her extensive smoking history, she should get follow up imaging with her PCP in 3-4 weeks Molly Mcdaniel MD, FACP [facility] C: [phone] O: [phone] F: [phone] Subjective Date of service: 03/12/19 Interval history: Has no complaints. Remained afebrile. Breathing is stable. Getting PT/OT Objective - Exam Narrative Exam: Physical Exam: Constitutional: Alert, cooperative. No acute distress. Cachexia Head, Ears, Nose: Normocephalic, atraumatic. External ears, nose normal Eyes: Conjunctivae/corneas clear. No icterus. No ptosis. Neck: Supple, no meningeal signs Cardiovascular: S1, S2 normal, 3/6 systolic murmur Respiratory: AE decreased bilaterally but clear GI: Soft, non-tender; bowel sounds normal. No peritoneal signs Musculoskeletal: No pedal edema, no cyanosis. Skin: No rash or abscess Hem/Lymphatic: No palpable cervical or supraclavicular nodes. No lymphangitis Psych: calm, good mood, affect normal Neurological: Awake, alert. - Constitutional Vitals: Vital Signs Temp Pulse Resp BP Pulse Ox 98.1 F 72 18 137/56 92 03/12/19 07:08 03/12/19 10:00 03/12/19 07:08 03/12/19 07:08 03/12/19 07:08 Temperature -Last 24 Hours Temperature 98.1 F Temperature 97.3 F Temperature 97.2 F Temperature 97.8 F - Labs CBC & Chem 7: 03/12/19 04:58 03/12/19 04:58 Labs: Abnormal lab results 03/12/19 03/12/19 Range/Units 04:58 04:58 RBC 3.22 L (3.65-5.03) M/mm3 Hgb 8.0 L (10.1-14.3) gm/dl Hct 24.9 L (30.3-42.9) % MCV 78 L (79-97) fl MCH 25 L (28-32) pg RDW 17.6 H (13.2-15.2) % Plt Count 586 H (140-440) K/mm3 Potassium 3.4 L (3.6-5.0) mmol/L Creatinine 0.5 L (0.7-1.2) mg/dL
[2019-03-12] MEDS ORDERED: POTASSIUM CHLORIDE 20 MEQ PACKET PO ONE (17:03)
--- NOTE | 2019-03-12 17:05 | Progress Note ---
Assessment and Plan Assessment and plan: Patient is a 74 yo woman with a history of tobacco dependency, depression and hypertension who presented to [facility] ED with AMS, cough, sob, chest pains. She was found to have bilateral pneumonia and low pulse ox of 88% on RA. * CXR 2 view: Extensive airspace disease within the left upper lobe, in the right lower lobe concerning for multifocal pneumonia Acute hypoxic respiratory failure: treat with O2 Bilateral Aspiration pneumonia, poa: treat with ABX Anemia appears acute on chronic s/p 1 units: monitor closely Severe malnutrition, poa bmi 16.8: consulted Commercial Diver Hypokalemia: replete and monitor closely DVT ppx scd due to hgb 7.0/anemia Disposition: continue inpatient care, still sob with minimal activity, hopefully can discharge tomorrow. History Interval history: Patient was seen and examined. Follow-up on current diagnosis. No overnight events reported to me. Patient denies any chest pain, shortness breath, nausea/vomiting or severe headaches. Imaging, nursing note, chart, labs and old chart reviewed. Discussed with patient. Hospitalist Physical - Physical exam Narrative exam: Gen: cachetic, NAD, Awake, Alert, Orientated HEENT: NCAT, EOMI, PERRL, OP Clear Neck: supple, no adenopathy, no thyromegaly, no JVD CVS/Heart: RRR, normal S1S2, pulses present bilaterally Chest/Lungs: coarse bs bilateral, Symmetrical chest expansion, good air entry bilaterally GI/Abdomen: soft, NTND, good bowel sounds, no guarding or rebound /Bladder: no suprapubic tenderness, no CVA or paraspinal tenderness Extermity/Skin: no c/c/e, no obvious rash MSK: FROM x 4 Neuro: CN 2-12 grossly intact except [place], no new focal deficits Psych: calm - Constitutional Vitals: Temp Pulse Resp BP Pulse Ox 97.6 F 69 18 147/60 95 03/12/19 13:05 03/12/19 13:05 03/12/19 13:05 03/12/19 13:05 03/12/19 13:05 General appearance: Present: no acute distress Results - Labs CBC & Chem 7: 03/12/19 04:58 03/12/19 04:58 Labs: Laboratory Last Values WBC 8.9 K/mm3 (4.5-11.0) 12/04/19 04:58 RBC 3.22 M/mm3 (3.65-5.03) L 03/12/19 04:58 Hgb 8.0 gm/dl (10.1-14.3) L 03/12/19 04:58 Hct 24.9 % (30.3-42.9) L 03/12/19 04:58 MCV 78 fl (79-97) L 03/12/19 04:58 MCH 25 pg (28-32) L 03/12/19 04:58 MCHC 32 % (30-34) 03/12/19 04:58 RDW 17.6 % (13.2-15.2) H 03/12/19 04:58 Plt Count 586 K/mm3 (140-440) H 03/12/19 04:58 Lymph % (Auto) 20.7 % (13.4-35.0) 03/11/19 04:04 [place] % (Auto) 12.8 % (0.0-7.3) H 03/11/19 04:04 Eos % (Auto) 3.6 % (0.0-4.3) 03/11/19 04:04 Baso % (Auto) 1.0 % (0.0-1.8) 03/11/19 04:04 Lymph # 2.2 K/mm3 (1.2-5.4) 03/11/19 04:04 [place] # 1.4 K/mm3 (0.0-0.8) H 03/11/19 04:04 Eos # 0.4 K/mm3 (0.0-0.4) 03/11/19 04:04 Baso # 0.1 K/mm3 (0.0-0.1) 03/11/19 04:04 Seg Neutrophils % 61.9 % (40.0-70.0) 03/11/19 04:04 Seg Neutrophils # 6.6 K/mm3 (1.8-7.7) 03/11/19 04:04 Sodium 141 mmol/L (137-145) 03/12/19 04:58 Potassium 3.4 mmol/L (3.6-5.0) L 03/12/19 04:58 Chloride 104.9 mmol/L (98-107) 03/12/19 04:58 Carbon Dioxide 23 mmol/L (22-30) 03/12/19 04:58 Anion Gap 17 mmol/L 03/12/19 04:58 BUN 11 mg/dL (7-17) 03/12/19 04:58 Creatinine 0.5 mg/dL (0.7-1.2) L 03/12/19 04:58 Estimated GFR > 60 ml/min 03/12/19 04:58 BUN/Creatinine Ratio 22 % 03/12/19 04:58 Glucose 77 mg/dL (65-100) 03/12/19 04:58 Hemoglobin A1c 4.8 % (4-6) 03/10/19 08:12 Calcium 8.5 mg/dL (8.4-10.2) 03/12/19 04:58 Total Bilirubin 0.20 mg/dL (0.1-1.2) 03/11/19 04:04 AST 8 units/L (5-40) 03/11/19 04:04 ALT 5 units/L (7-56) L 03/11/19 04:04 Alkaline Phosphatase 126 units/L (35-129) 03/11/19 04:04 Troponin T < 0.010 ng/mL (0.00-0.029) 03/10/19 12:50 Total Protein 5.1 g/dL (6.3-8.2) L 03/11/19 04:04 Albumin 2.2 g/dL (3.9-5) L 03/11/19 04:04 Albumin/Globulin Ratio 0.8 % 03/11/19 04:04 Lipase 9 units/L (13-60) L 03/10/19 01:05 Urine Color Yellow (Yellow) 03/10/19 04:50 Urine Turbidity Clear (Clear) 03/10/19 04:50 Urine pH 6.0 (5.0-7.0) 03/10/19 04:50 Ur Specific [place] 1.019 (1.003-1.030) 03/10/19 04:50 Urine Protein <15 mg/dl mg/dL (Negative) 03/10/19 04:50 Urine Glucose (UA) Neg mg/dL (Negative) 03/10/19 04:50 Urine Ketones Neg mg/dL (Negative) 03/10/19 04:50 Urine Blood Neg (Negative) 03/10/19 04:50 Urine Nitrite Neg (Negative) 03/10/19 04:50 Urine Bilirubin Neg (Negative) 03/10/19 04:50 Urine Urobilinogen 4.0 mg/dL (<2.0) 03/10/19 04:50 Ur Leukocyte Esterase Neg (Negative) 03/10/19 04:50 Urine WBC (Auto) 1.0 /HPF (0.0-6.0) 03/10/19 04:50 Urine RBC (Auto) 15.0 /HPF (0.0-6.0) 03/10/19 04:50 U Epithel Cells (Auto) < 1.0 /HPF (0-13.0) 03/10/19 04:50 Urine Mucus Few /HPF 03/10/19 04:50 Influenza A (Rapid) Negative (Negative) 03/10/19 15:28 Influenza B (Rapid) Negative (Negative) 03/10/19 15:28 Blood Type O POSITIVE 03/10/19 08:12 Antibody Screen Negative 03/10/19 08:12 Crossmatch See Detail 03/10/19 08:12 Active Medications - Current Medications Current Medications: Generic Name Dose Route Start Last Admin Trade Name Freq PRN Reason Stop Dose Admin Acetaminophen 650 mg 03/10/19 06:45 Tylenol PO Q4H PRN Pain MILD(1-3)/Fever >100.5/HUANG Famotidine 10 mg 03/11/19 10:00 03/12/19 10:09 Pepcid PO 10 mg BID MARTHA Administration Heparin Sodium (Porcine) 5,000 unit 03/10/19 10:00 03/12/19 10:10 Heparin SUB-Q 5,000 unit Q12HR MARTHA Administration Hydromorphone HCl 0.25 mg 03/10/19 06:38 Dilaudid IV Q3H PRN Pain, Moderate (4-6) Sodium Chloride 1,000 mls @ 75 mls/hr 03/10/19 07:00 03/12/19 10:10 Nacl 0.9% 1000 Ml IV 75 mls/hr DIRECT MARTHA Administration Azithromycin 500 mg/ Sodium 250 mls @ 250 mls/hr 03/10/19 10:00 03/12/19 10:10 Chloride IV 03/14/19 10:59 250 mls/hr Q24HR MARTHA Administration Protocol Ceftriaxone Sodium 1 gm in 50 mls @ 100 mls/hr 03/11/19 10:00 03/12/19 10:09 Rocephin/Ns 1 Gm/50 Ml IV 03/14/19 10:29 100 mls/hr Q24H MARTHA Administration Protocol Metoclopramide HCl 5 mg 03/10/19 08:00 Reglan IV Q6H PRN Nausea And Vomiting Ondansetron HCl 4 mg 03/10/19 06:38 Zofran IV Q8H PRN Nausea And Vomiting Oxycodone/Acetaminophen 1 tab 03/10/19 06:38 Percocet 5/325 PO Q6H PRN Pain, Moderate (4-6) Sodium Chloride 10 ml 03/10/19 10:00 03/12/19 10:10 Sodium Chloride Flush Syringe 10 Ml IV 10 ml BID MARTHA Administration Sodium Chloride 10 ml 03/10/19 06:38 Sodium Chloride Flush Syringe 10 Ml IV PRN PRN LINE FLUSH Tramadol HCl 50 mg 03/10/19 06:37 Ultram PO Q12H PRN Pain, Mild (1-3) Trazodone HCl 50 mg 03/10/19 22:00 03/11/19 22:35 Desyrel PO 50 mg QHS MARTHA Administration Nutrition/Malnutrition Assess - Dietary Evaluation Nutrition/Malnutrition Findings: Nutrition Notes Start: 03/11/19 12:27 Freq: Status: Active Protocol: Document 03/11/19 12:27 KS (Rec: 03/11/19 12:42 KS [id number]) Co-Sign 03/11/19 12:27 LP Nutrition Notes Need for Assessment generated from: Low BMI Initial or Follow up Assessment Current Diagnosis Sepsis,Hypertension Other Pertinent Diagnosis Pneumonia, Anemia Current Diet Regular Diet Labs/Tests CR 0.5 Pertinent Medications Heparin Height 4 ft 7 in Weight 32.8 kg Usual Body Weight 36.4 kg [place] Body Weight (kg) 34.09 BMI 16.8 Intake Prior to Admission Fair Weight change and time frame 12.5% wt loss in 3 mos Weight Status Underweight Subjective/Other Information Consult for low BMI. Pt reports UBW of 80lbs and wt loss of 10lbs in 3 mos. Wt in chart consistent with stated wt loss. Pt reports decreased appetite, only eating bites of food x4 days ADMISSIONS ASSISTANT. Pt ate bites of breakfast tray this morning which family member at bedside says is "more than at home." No N/V/D. Mild muscle wasting noted. Pt requests Ensure Enlive BID. Burn Absent Trauma Absent Minimum of two criteria Yes Energy Intake (non-severe) <75% Estimated Energy Requirement >7 days Interpretation of Weight Loss (severe) >7.5% in 3 months Muscle Mass Mild Depletion (non-severe) #1 Nutrition Diagnosis Malnutrition Etiology decreased appetite, unintended wt loss As Evidenced by Signs and Symptoms pt eating bites of food, wt loss of 8.8% in 3 mos, muscle wasting Is patient on ventilator? No Is Patient Ambulatory and/or Out of Bed Yes REE-([facility]-ambulatory/OOB) [ 871.169 NUTR.[id number]] Kcal/Kg value to use for calculation 37 Approximate Energy Requirements Using 1214 kcal/Kg Calculation Used for Recommendations Kcal/kg Additional Notes PRO: 39-49g/kg/day (1.2-1.5g/ kg/day) Fluid: 1mL/kcal Nutrition Intervention Change Diet Order: Continue current diet Add Supplement/Snack (indicate name/kcal Ensure Enlive BID /protein ) Provides kCal: 700 Provides Protein (gm) 40 Goal #1 Meet at least 75% of needs via PO and ONS intakes Anticipated Discharge Needs: Regular Diet Follow-Up By: 03/13/19 Additional Comments Follow for PO and ONS intakes
[2019-03-12] MEDS: traZODone 50 MG TAB PO SCH (21:32)
[2019-03-13] MEDS: SODIUM CHLORIDE 0.9% 1000 ML 1,000 ML IV SCH (02:37)
[2019-03-13] MEDS: FAMOTIDINE 10 MG TAB PO SCH (09:30)
[2019-03-13] MEDS: HEPARIN 5,000 UNIT/1 ML VIAL SUB-Q SCH (09:30)
[2019-03-13] MEDS: AZITHROMYCIN 500 MG in SODIUM CHLORIDE 0.9% 250ML 250 ML IV SCH (09:31)
[2019-03-13] MEDS: cefTRIAXone/NS 1 GM/50 ML 1 GM/50 ML BAG IV SCH (09:31)
--- NOTE | 2019-03-13 10:22 | Progress Note ---
Assessment and Plan Atypical chest pain Pneumonia Severe anemia Chronic left bundle-branch block An echocardiogram done this admission reports at least moderate MR with a decreased left ventricular systolic function, EF 20-25%. Initiate medical therapy for dilated cardiomyopathy. Outpatient cardiac evaluation once respiratory status is stable and pneumonia is resolved. Subjective Date of service: 03/13/19 Interval history: Patient is resting in bed comfortably. Family member is at the bedside. Objective Vital Signs Temp Pulse Pulse Resp BP Pulse Ox 03/13/19 07:49 98.5 F 71 19 143/61 93 03/13/19 07:38 72 03/13/19 02:19 98.6 F 71 18 141/63 96 03/12/19 22:00 73 73 18 03/12/19 19:24 98.6 F 73 18 142/58 94 03/12/19 13:05 97.6 F 69 18 147/60 95 - Physical Examination General: No Apparent Distress HEENT: Positive: PERRL Neck: Positive: trachea midline Cardiac: Positive: Reg Rate and Rhythm Lungs: Positive: Decreased Breath Sounds Neuro: Positive: Grossly Intact Extremities: Absent: edema
--- NOTE | 2019-03-13 12:30 | Progress Note ---
Assessment and Plan Cultures: None A/P: 74-year-old female with history of hypertension admitted with: 1) Bilateral pneumonia: mild WBC elevation with chest pain and CXR findings concerning for multifocal pneumonia. Rapid influenza negative. 2) Anemia with thrombocytosis: monitor. Improving. 3) Extensive tobacco use: needs to quit smoking. Recs: From ID standpoint, she can be discharged on PO Ceftin 500 mg BID + Azithromycin 500 mg daily x 1 more day ending 03/14/2019 given her extensive smoking history, she should get follow up imaging with her PCP in 3-4 weeks Molly Mcdaniel MD, FACP [facility] C: [phone] O: [phone] F: [phone] Subjective Date of service: 03/13/19 Interval history: Has no complaints. No fever. Breathing is much improved. No cough. Son at bedside. Objective - Exam Narrative Exam: Physical Exam: Constitutional: Alert, cooperative. No acute distress. Cachexia Head, Ears, Nose: Normocephalic, atraumatic. External ears, nose normal Eyes: Conjunctivae/corneas clear. No icterus. No ptosis. Neck: Supple, no meningeal signs Cardiovascular: S1, S2 normal, 3/6 systolic murmur Respiratory: AE clear bilaterally, no rhonchi or wheeze GI: Soft, non-tender; bowel sounds normal. No peritoneal signs Musculoskeletal: No pedal edema, no cyanosis. Skin: No rash or abscess Hem/Lymphatic: No palpable cervical or supraclavicular nodes. No lymphangitis Psych: calm, good mood, affect normal Neurological: Awake, alert. - Constitutional Vitals: Vital Signs Temp Pulse Resp BP Pulse Ox 98.5 F 71 19 143/61 93 03/13/19 07:49 03/13/19 07:49 03/13/19 07:49 03/13/19 07:49 03/13/19 07:49 Temperature -Last 24 Hours Temperature 98.5 F Temperature 98.6 F Temperature 98.6 F Temperature 97.6 F - Labs CBC & Chem 7: 03/12/19 04:58 03/12/19 04:58
--- NOTE | 2019-03-13 15:31 | Discharge Summary ---
Providers - Providers Date of Admission: 03/10/19 06:18 Date of discharge: 03/13/19 Attending physician: GURPREET THURMAN 03/10/19 08:56 Physical Therapy Evaluation and Treat [CONS] Routine Comment: Reason For Exam: Weakness 03/10/19 10:04 Consult to Physician [CONS] Routine Comment: called office/ eric Consulting Provider: AMY NOLEN Physician Instructions: Reason For Exam: pna, sepsis Consult to Physician [CONS] Routine Comment: spoke to kathryn / eric Consulting Provider: MORAIMA BLANCHARD Physician Instructions: Reason For Exam: chest pain 03/11/19 14:16 Consult to Dietitian/Nutrition [CONS] Routine Physician Instructions: Reason For Exam: Reason for Consult: Malnutrition Primary care physician: CHECK GRADER Hospitalization Condition: Stable Hospital course: Patient is a 74 yo woman with a history of tobacco dependency, depression and hypertension who presented to [facility] ED with AMS, cough, sob, chest pains. She was found to have bilateral pneumonia and low pulse ox of 88% on RA. * CXR 2 view: Extensive airspace disease within the left upper lobe, in the right lower lobe concerning for multifocal pneumonia Discharge Diagnoses: Acute hypoxic respiratory failure: treated with supplemental O2, weaned off Bilateral Aspiration pneumonia, poa: treat with ABX Anemia appears acute on chronic s/p 1 units PRBC: monitor closely Severe malnutrition, poa bmi 16.8 on admission: consulted Automated Logistics Specialist Hypokalemia: replete and monitor closely DVT ppx scd due to hgb 7.0/anemia Disposition: offered SNF but patient and family/son declined (want to spend Melony at home), so d/c home today Disposition: DC-01 TO HOME OR SELFCARE Time spent for discharge: 32 minutes Core Measure Documentation - Palliative Care Palliative Care/ Comfort Measures: Not Applicable - Core Measures Any of the following diagnoses?: none - VTE Discharge Requirements Deep Vein Thrombosis/Pulmonary Embolism Present on Admission: No Has pt received <5 days of overlap therapy or INR<2.0: No Anticoagulant overlap therapy prescribed at discharge: No Contraindication No Overlap Therapy order at DC: Not Indicated Exam - Physical Exam Narrative exam: Gen: cachetic, NAD, Awake, Alert, Orientated HEENT: NCAT, EOMI, PERRL, OP Clear Neck: supple, no adenopathy, no thyromegaly, no JVD CVS/Heart: RRR, normal S1S2, pulses present bilaterally Chest/Lungs: coarse bs bilateral, Symmetrical chest expansion, good air entry bilaterally GI/Abdomen: soft, NTND, good bowel sounds, no guarding or rebound /Bladder: no suprapubic tenderness, no CVA or paraspinal tenderness Extermity/Skin: no c/c/e, no obvious rash MSK: FROM x 4 Neuro: CN 2-12 grossly intact except [place], no new focal deficits Psych: calm - Constitutional Vitals: Temp Pulse Resp BP Pulse Ox 98.5 F 72 19 143/61 93 03/13/19 07:49 03/13/19 10:00 03/13/19 07:49 03/13/19 07:49 03/13/19 07:49 Plan Activity: other (no strenous activity unless cleared by PCP) Diet: regular, other (Ensure high calorie/protein shakes) Special Instructions: smoking cessation Additional Instructions: GET follow up imaging with her PCP in 3-4 weeks Follow up with: PRIMARY MD JASON [Primary Care Provider] - 3-5 Days MORAIMA BLANCHARD MD [Staff Physician] - 7 Days NITA KONG MD [Staff Physician] - 7 Days Prescriptions: Azithromycin 500 mg PO QDAY #1 tablet cefUROXime [Ceftin] 2 tab PO Q12H #8 tablet
[2019-03-13 19:57] VITALS: BP 159/75
[2019-03-13] MEDS ORDERED: carvediloL 3.125 MG TAB PO SCH (22:00)
[2019-03-14] MEDS ORDERED: FUROSEMIDE 20 MG TAB PO SCH (10:00)
[2019-03-14] MEDS ORDERED: LISINOPRIL 5 MG TAB PO SCH (10:00)
[2019-03-14] MEDS ORDERED: ASPIRIN 325 MG TAB PO SCH (10:00)
[2019-03-14] MEDS ORDERED: SPIRONOLACTONE 25 MG TAB PO SCH (10:00)
== END 2019-03-13 20:20 | disposition home health service (06) | DRG 177 ==
LOC: ED 23:47 → 2B-ACE 03-10 06:18
PROVIDERS: ADMIT Internal Medicine; ATTEND Internal Medicine
PROC: 30233N1 Transfusion of Nonautologous Red Blood Cells into Peripheral Vein, Percutaneous Approach (ICD-10-PCS; principal; 2019-03-10)
DX: J69.0 Pneumonitis due to inhalation of food and vomit (principal); E43 Unspecified severe protein-calorie malnutrition; J96.01 Acute respiratory failure with hypoxia; Z68.1 Body mass index [BMI] 19.9 or less, adult; I42.0 Dilated cardiomyopathy; F32.9 Major depressive disorder, single episode, unspecified; D64.9 Anemia, unspecified; F17.210 Nicotine dependence, cigarettes, uncomplicated; E87.6 Hypokalemia; Z82.49 Family history of ischemic heart disease and other diseases of the circulatory system; Z71.6 Tobacco abuse counseling
CPT/HCPCS: 36415; 36430; 71046; 80048; 80053; 81001; 83036; 83690; 84484; 85025; 85027; 86850; 86900; 86901; 86920; 87400; 93005; 93010; 93306; G0378; J0456; J0696; J1644; J7030; J7050; P9016

== ENCOUNTER 2019-04-02 17:41 | Emergency (ER) | payer MEDICARE | END 2019-04-02 20:32 | LOC: ED 17:41 | CPT/HCPCS: 92950; 99285; J0171 ==